=== PATIENT | male | born 1960 | race American Indian/Alaskan Native ===

== ENCOUNTER 2022-02-25 13:05 | Emergency (ER) | payer MEDICAID ==
[~2022-02-25] VITALS: Ht 185.4 cm; Wt 95.5 kg
[2022-02-25 13:21] VITALS: BP 101/60
== END 2022-02-25 13:56 | disposition home or self-care (01) ==
LOC: ER 13:06
DX: F15.10 Other stimulant abuse, uncomplicated (principal); F17.200 Nicotine dependence, unspecified, uncomplicated
CPT/HCPCS: 99281